=== PATIENT | female | born 1955 ===

== ENCOUNTER 2017-06-09 07:16 | Outpatient (CLI) | payer OTHER | END 2017-06-09 13:03 | disposition home or self-care (01) | LOC: SONOGRAMA 07:16 | DX: K80.20 Calculus of gallbladder without cholecystitis without obstruction (principal) ==

== ENCOUNTER 2020-11-12 08:00 | Outpatient (CLI) | payer OTHER | END 2020-11-12 08:30 | disposition home or self-care (01) | LOC: PPH VACUNA 08:00 | DX: Z23 Encounter for immunization (principal) ==

== ENCOUNTER 2021-07-21 14:35 | Emergency (ER) | payer OTHER ==
[~2021-07-21] VITALS: Ht 170.2 cm; Wt 95.3 kg
[2021-07-21] MEDS ORDERED: TOPROL XL25 M1 (15:09)
[2021-07-21] MEDS ORDERED: AVAPRO300 MG PO (15:09)
[2021-07-21] MEDS ORDERED: CHLORTHALIDONE25 MG PO (15:10)
[2021-07-21] MEDS ORDERED: ANASTROZOLE1 MG PO (15:10)
== END 2021-07-21 19:11 | disposition home or self-care (01) ==
LOC: ER 14:35
DX: M79.601 Pain in right arm (principal); M54.2 Cervicalgia; I10 Essential (primary) hypertension